=== PATIENT | male | born 1955 | race Caucasian/White ===

== ENCOUNTER 2023-08-08 09:28 | Emergency (ER) | payer OTHER, SELFPAY ==
[2023-08-08] VITALS (9 sets, daily range): BP systolic 129–180; BP diastolic 68–86; PULSE 64–85; RESP 16–28; TEMP 36.1; O2SAT 94–99; BMI 30.9
--- NOTE | 2023-08-08 09:49 | ED.GENADULT ---
HPI - General Adult General Chief complaint: Allergic Reaction Stated complaint: allergic reaction, rash on body, swelling mouth Time Seen by Provider: 08/08/23 09:48 Source: patient, RN notes reviewed and old records reviewed Mode of arrival: Ambulatory Limitations: no limitations History of Present Illness HPI narrative: 68-year-old male with history of hypertension, dyslipidemia, anxiety who presents with complaint of rash on his body that comes and goes typically he awakens with hive-like rash in the mornings it resolves over time. He states this morning he had a little bit of swelling of his lip, his tongue feels slightly swollen and he noticed a little facial swelling. He denies any swelling in his throat. He denies any difficulty with swallowing or eating. He had a bagel and some other food hoping it would make it go away and it did not. He states that the oral involvement is new. He does state that he had some cherries last night before bed but does not have any known allergy to cherries. He states the hive-like changes has been going on and off for some time. He did receive some oral prednisone a couple weeks ago which seemed to help but the rash has come back since. Patient states does not seem to be progressing quickly. He waited this morning because often his symptoms will resolve as the day goes by. But the oral involvement was new which prompted him to come in. He states no new changes to his medications he is on atorvastatin hydrochlorothiazide and citalopram. He states he has had a prior ankle surgery. He does not report any medication allergies to myself, denies any food or other known allergies. Denies tobacco, no regular alcohol, no recreational drugs. He lives in [place] and is visiting the area. Related Data Previous Rx's Medication Instructions Recorded epinephrine 0.3 mg/0.3 mL 0.3 mg (0.3 mL) IM Q5-15M PRN 08/08/23 injection, auto-injector (EpiPen anaphylaxis #2 ea 2-Reynold) prednisone 10 mg tablets in a dose See Rx Instructions PO .COMPLEX 08/08/23 pack #21 ea Review of Systems Review of Systems ROS Unobtainable: All systems reviewed & are unremarkable except as noted in HPI and below Patient History Social History Smoking Status: Former smoker Exam Narrative Exam Narrative: GEN: well nourished, well appearing male, alert and oriented x 3, patient appears to be in mild distress. HEENT: Atraumatic, pupils are equal round reactive to light, extraocular movements are intact, nares are clear, there is no conjunctival pallor. Throat is clear without any exudates, erythema, tonsillar enlargement or uvular deviation, patient has some swelling of the left upper lip, no oropharyngeal swelling appreciated, no stridor no hoarseness no difficulty with swallowing or speech. HEART: Regular rate and rhythm without murmur, clicks, rubs. LUNGS:Lungs clear to auscultation, no wheezes, rales, crackles, chest moves symmetrically ABD:bowel sounds normal, soft, non-tender, no guarding, rebound, rigidity, no masses noted, no hepatosplenomegaly MSCL: Non-tender, no muscle atrophy, muscles strength 5/5 upper and lower extremities, full range of motion NEURO:CN 2-12 intact, sensation normal SKIN: Patient has erythematous raised wheals his torso, underneath his right upper extremity, no involvement of the left, no involvement of the face. Initial Vital Signs Initial Vital Signs: Vital Signs Pulse Rate 85 08/08/23 09:33 Pulse Oximetry 98 08/08/23 09:33 Course Orders Ordered: Discontinued Medications Diphenhydramine HCl (Diphenhydramine 50 Mg/Ml Vial) 50 mg IV NOW ONE Stop: 08/08/23 09:49 Last Admin: 08/08/23 09:54 Dose: 50 mg Documented By: LEIA Famotidine (Famotidine 20 Mg/2 Ml Vial) 20 mg IV NOW MEGAN Last Admin: 08/08/23 09:54 Dose: 20 mg Documented By: LEIA Methylprednisolone (Methylprednisolone 125 Mg/2 Ml Vial) 125 mg IV NOW ONE Stop: 08/08/23 09:49 Last Admin: 08/08/23 09:53 Dose: 125 mg Documented By: LEIA Vital Signs Vital signs: Vital Signs - 8 hr 08/08/23 11:00 08/08/23 11:00 08/08/23 11:30 Pulse Rate 70 Respiratory Rate 18 Blood Pressure 130/68 129/74 Pulse Oximetry 94 08/08/23 11:30 08/08/23 11:53 08/08/23 11:53 Pulse Rate 66 65 Respiratory Rate 17 28 H Blood Pressure 139/84 Pulse Oximetry 95 94 08/08/23 12:00 08/08/23 12:00 Pulse Rate 65 Respiratory Rate 18 Blood Pressure 139/81 Pulse Oximetry 96 Medical Decision Making MDM Narrative Medical decision making narrative: Patient describes waxing and waning urticarial like rash for at least several weeks if not longer. Patient notes that today he developed some swelling of his lip and has a sensation of swelling of his tongue. States no difficulty with swallowing or breathing. He states typically the symptoms we will go away in the morning but has a new oropharyngeal involvement and presented. He was on prednisone 2 weeks ago which helped rash but has not taken anything today. No new medications currently he is on HCTZ, atorvastatin and citalopram daily. States he did have cherries last night but no known allergies. Patient had improvement after medications. We will give EpiPen in case he is recurrence but based on his symptoms and cyclic nature maybe more of a angioedema. Recommended patient follow up with Allergy keep a record of potential exposures, foods etc.. Discharge Plan Departure Patient Disposition: Home Clinical Impression: Angioedema, Urticaria Instructions: DI for Angioedema Activity Restrictions/Additional Instructions: Please follow-up with primary care or an employment case manager. Your symptoms could be anaphylaxis but there has also a possibility of angioedema. Please keep record of any potential exposures, your meals and foods ingested in any new medications as well as your symptoms. Share this with your physician or the employment case manager when you follow with them. Prescription for EpiPen is included, please use this if you are having any anaphylaxis type symptoms. You should be seen in emergency department if you have to use your EpiPen. Continue with prednisone daily until completed. You can take Zantac 1 tablet twice daily [id number]. Prescription sent to [facility] in [place] Please return for recurrent symptoms swelling of your lips, tongue, airway difficulty with breathing, stridor high-pitched wheezing, passing out, persistent vomiting, chest pain or tightness breath or other new or concerning symptoms. Prescriptions: New prednisone 10 mg tablets,dose pack See Rx Instructions .ROUTE .COMPLEX Qty: 21 0RF Rx Instructions: 6 tabs p.o. x1 day, then 5 tabs p.o. x1 day, then 4 tablets p.o. x1 day, then 3 tabs p.o. x1 day, then 2 tabs p.o. x1 day, then 1 tab p.o. x1 day epinephrine [EpiPen 2-Reynold] 0.3 mg/0.3 mL auto-injector 0.3 mg IM Q5-15M PRN (Reason: anaphylaxis) Qty: 2 0RF Rx Instructions: do not exceed 3 doses per episode Stand Alone Forms: Patient Portal/API
[2023-08-08] MEDS: methylPREDNISolone 125 MG/2 ML VIAL IV (09:53)
[2023-08-08] MEDS: diphenhydrAMINE 50 MG/ML VIAL IV (09:54)
[2023-08-08] MEDS: FAMOTIDINE 20 MG/2 ML VIAL IV (09:54)
== END 2023-08-08 12:10 | disposition home or self-care (01) ==
PROVIDERS: Emergency Provider Emergency Medicine
DX: T78.3XXA Angioneurotic edema, initial encounter (principal); L50.9 Urticaria, unspecified
CPT/HCPCS: 36415; 96374; 96375; 99284; J1200; J2919